=== PATIENT | female | born 1935 | race Two or more races ===

== ENCOUNTER 2018-07-23 13:24 | Emergency (ER) | payer MEDICAID ==
[~2018-07-23] VITALS: Ht 149.9 cm; Wt 49.9 kg
[~2018-07-23 13:24] MED LIST: GABA100C9 PO; SIMV80TA73 PO
[2018-07-23 13:36] VITALS: BP 141/80
== END 2018-07-23 14:57 | disposition home or self-care (01) ==
LOC: ER 13:24
DX: S00.03XA Contusion of scalp, initial encounter (principal); E78.5 Hyperlipidemia, unspecified; Z79.899 Other long term (current) drug therapy; Z90.49 Acquired absence of other specified parts of digestive tract; W01.198A Fall on same level from slipping, tripping and stumbling with subsequent striking against other object, initial encounter; Y93.89 Activity, other specified; Y99.8 Other external cause status; Y92.89 Other specified places as the place of occurrence of the external cause
CPT/HCPCS: 70450

== ENCOUNTER 2021-04-03 11:15 | Emergency (ER) | payer MEDICAID ==
[~2021-04-03] VITALS: Ht 149.9 cm; Wt 54.4 kg
[2021-04-03 13:39] LABS: Basophils # (auto) 0 10 ^3/uL (0-0.2); Basophils % (auto) 0.7 % (0.0-2.0); Eosinophils # (auto) 0.3 10 ^3/uL (0-0.8); Eosinophils % (auto) 4.7 % (0.0-7.0); Hematocrit 38.3 % (36.0-46.0); Lymphocytes % (auto) 31.5 % (10.0-50.0); Mean Corpuscular Hgb Conc. 33.9 g/dL (32.0-36.0); Mean Corpuscular Volume 88.7 fL (80.0-100.0); Monocytes # (auto) 0.5 10 ^3/uL (0-1.3); Monocytes % (auto) 7.3 % (0.0-12.0); Neutrophils # (auto) 3.5 10 ^3/uL (1.6-8.6); Neutrophils % (auto) 55.8 % (37.0-80.0); Red Blood Cells 4.32 10^6/uL (4.0-5.20); White Blood Cell 6.2 10^3/uL (4.4-10.8)
[2021-04-03 13:56] LABS: Albumin 3.9 g/dL (3.4-5.0); Calcium 9.6 mg/dL (8.5-10.1); Potassium 4.5 mmol/L (3.5-5.1)
[2021-04-03 14:00] LABS: BUN/Creatinine Ratio 16.7; Bilirubin, Total 0.7 mg/dL (0.2-1.0)
[2021-04-03 16:20] VITALS: BP 149/84
== END 2021-04-03 16:28 | disposition home or self-care (01) ==
LOC: ER 11:15
DX: R51.9 Headache, unspecified (principal); R42 Dizziness and giddiness; I12.9 Hypertensive chronic kidney disease with stage 1 through stage 4 chronic kidney disease, or unspecified chronic kidney disease; N18.30 Chronic kidney disease, stage 3 unspecified; E78.5 Hyperlipidemia, unspecified; M25.512 Pain in left shoulder; M25.511 Pain in right shoulder; M54.6 Pain in thoracic spine; Z90.49 Acquired absence of other specified parts of digestive tract; Z79.899 Other long term (current) drug therapy
CPT/HCPCS: 36415; 70450; 80053; 85025; 93005

== ENCOUNTER 2021-12-06 20:49 | Inpatient (IN) | payer MEDICAID ==
[~2021-12-06] VITALS: Ht 152.4 cm; Wt 56.0 kg
[2021-12-06 23:36] LABS: Basophils # (auto) 0.1 10 ^3/uL (0-0.2); Basophils % (auto) 0.7 % (0.0-2.0); Eosinophils # (auto) 0.2 10 ^3/uL (0-0.8); Eosinophils % (auto) 3.2 % (0.0-7.0); Hematocrit 36.3 % (36.0-46.0); Hemoglobin 12.2 g/dL (12.2-16.2); Lymphocytes # (auto) 2.1 10 ^3/uL (0.4-5.4); Lymphocytes % (auto) 27.8 % (10.0-50.0); Mean Corpuscular Hemoglobin 29.5 pg (28.0-32.0); Mean Corpuscular Hgb Conc. 33.6 g/dL (32.0-36.0); Mean Corpuscular Volume 87.8 fL (80.0-100.0); Monocytes # (auto) 0.6 10 ^3/uL (0-1.3); Monocytes % (auto) 7.9 % (0.0-12.0); Neutrophils # (auto) 4.6 10 ^3/uL (1.6-8.6); Neutrophils % (auto) 60.4 % (37.0-80.0); Red Blood Cells 4.13 10^6/uL (4.0-5.20); Red Cell Distribution Width 13.8 % (11.8-14.3); White Blood Cell 7.6 10^3/uL (4.4-10.8)
[2021-12-06 23:55] LABS: Calcium 9.1 mg/dL (8.5-10.1); Magnesium 1.9 mg/dL (1.6-2.6); Potassium 4.4 mmol/L (3.5-5.1)
[2021-12-07 00:04] LABS: BUN/Creatinine Ratio 27.5; Bilirubin, Total 0.6 mg/dL (0.2-1.0); Total Protein 8.2 g/dL (6.4-8.2)
[2021-12-07] MEDS ORDERED: SODIUM CHLORIDE 0.9% 1,000 ML IV ONE (00:15)
[2021-12-07] MEDS ORDERED: ACETAMINOPHEN 325 MG TAB PO ONE (06:45)
[2021-12-07 10:39] LABS: Urine Bacteria NONE SEEN /hpf (None Seen); Urine Blood 1+ /uL (Negative); Urine Specific Gravity 1.005 (1.001-1.035); Urine WBC 1 /hpf (0 - 5)
[2021-12-07] MEDS ORDERED: DOCUSATE SOD 100 MG CAP PO PRN (10:45)
[2021-12-07] MEDS ORDERED: ONDANSETRON HCL 4 MG/2 ML VIAL IV PRN (10:45)
[2021-12-07] MEDS ORDERED: ACETAMINOPHEN 325 MG TAB PO PRN (10:45)
[2021-12-07] MEDS: SODIUM CHLORIDE 0.9% 1,000 ML IV SCH (11:22)
[2021-12-07] MEDS: GABAPENTIN 100 MG CAP PO SCH ×2 (14:00→23:12)
[2021-12-07] MEDS: SODIUM CHLOR 0.9% PF (SALINE LOCK) 10ML VIAL/SYR IV SCH ×2 (14:04→23:10)
[2021-12-07] MEDS ORDERED: LISI20TA28 PO (19:20)
[2021-12-07] MEDS ORDERED: CHOL20007 PO (19:20)
[2021-12-07] MEDS ORDERED: ALEN70TA2 PO (19:20)
[2021-12-07] MEDS: HYDROcodone-ACET 5/325MG TAB PO PRN (20:19)
[2021-12-07 22:00] VITALS: BP 152/61
[2021-12-07 23:00] VITALS: BP 114/50
[2021-12-08] MEDS: SODIUM CHLORIDE 0.9% 1,000 ML IV SCH (03:45)
[2021-12-08 05:00] VITALS: BP 133/55
[2021-12-08] MEDS: SODIUM CHLOR 0.9% PF (SALINE LOCK) 10ML VIAL/SYR IV SCH ×3 (05:40→21:16)
[2021-12-08] MEDS: GABAPENTIN 100 MG CAP PO SCH (05:42)
[2021-12-08 09:00] VITALS: BP 150/74
[2021-12-08] MEDS ORDERED: SIMVASTATIN 80 MG PO SCH (10:00)
[2021-12-08 13:00] VITALS: BP 130/69
[2021-12-08] MEDS ORDERED: hydrALAZINE HCL 20 MG/ML VL IV PRN (14:00)
[2021-12-08] MEDS ORDERED: LISINOPRIL 10 MG TAB PO ONE (14:00)
[2021-12-08] MEDS ORDERED: THROAT LOZENGES(CEPASTAT) MT PRN (14:30)
[2021-12-08] MEDS ORDERED: ENOXAPARIN SOD 30 MG/0.3 ML SYRINGE SC ONE (14:45)
[2021-12-08 16:47] VITALS: BP 111/63
[2021-12-08 22:00] VITALS: BP 140/51
[2021-12-09] MEDS: SODIUM CHLOR 0.9% PF (SALINE LOCK) 10ML VIAL/SYR IV SCH ×2 (05:39→14:12)
[2021-12-09 05:44] LABS: Basophils # (auto) 0 10 ^3/uL (0-0.2); Basophils % (auto) 0.9 % (0.0-2.0); Eosinophils # (auto) 0.7 10 ^3/uL (0-0.8); Eosinophils % (auto) 13.8 % (0.0-7.0); Hematocrit 33.6 % (36.0-46.0); Hemoglobin 11.3 g/dL (12.2-16.2); Lymphocytes # (auto) 1.5 10 ^3/uL (0.4-5.4); Lymphocytes % (auto) 28.2 % (10.0-50.0); Mean Corpuscular Hgb Conc. 33.8 g/dL (32.0-36.0); Mean Corpuscular Volume 88.8 fL (80.0-100.0); Monocytes # (auto) 0.5 10 ^3/uL (0-1.3); Monocytes % (auto) 9.7 % (0.0-12.0); Neutrophils # (auto) 2.5 10 ^3/uL (1.6-8.6); Neutrophils % (auto) 47.4 % (37.0-80.0); Red Blood Cells 3.78 10^6/uL (4.0-5.20); Red Cell Distribution Width 13.9 % (11.8-14.3); White Blood Cell 5.3 10^3/uL (4.4-10.8)
[2021-12-09 06:07] LABS: Potassium 4.1 mmol/L (3.5-5.1)
[2021-12-09 06:10] LABS: BUN/Creatinine Ratio 17.9; Calcium 8.8 mg/dL (8.5-10.1)
[2021-12-09 06:50] VITALS: BP 121/67
[2021-12-09 08:05] VITALS: BP 121/65
[2021-12-09] MEDS ORDERED: LISINOPRIL 20 MG TAB PO SCH (10:00)
[2021-12-09] MEDS ORDERED: ENOXAPARIN SOD 30 MG/0.3 ML SYRINGE SC SCH (10:00)
[2021-12-09] MEDS: HYDROcodone-ACET 5/325MG TAB PO PRN (10:09)
[2021-12-09 13:00] VITALS: BP 132/67
[2021-12-09 15:37] VITALS: BP 132/67
[2021-12-09 16:38] VITALS: BP 123/59
== END 2021-12-09 18:51 | disposition home health service (06) | DRG 384 ==
LOC: ER 20:49 → OVERFLOW 12-07 10:50 → WEST WING 12-07 22:05
PROVIDERS: ADMIT Internal Medicine; ATTEND Internal Medicine
DX: S00.03XA Contusion of scalp, initial encounter (principal); E87.1 Hypo-osmolality and hyponatremia; R42 Dizziness and giddiness; E78.00 Pure hypercholesterolemia, unspecified; E86.0 Dehydration; I10 Essential (primary) hypertension; M81.0 Age-related osteoporosis without current pathological fracture; R26.81 Unsteadiness on feet; Z20.822 Contact with and (suspected) exposure to COVID-19; W01.0XXA Fall on same level from slipping, tripping and stumbling without subsequent striking against object, initial encounter; Y93.89 Activity, other specified; Y99.8 Other external cause status; Y92.009 Unspecified place in unspecified non-institutional (private) residence as the place of occurrence of the external cause; Z90.49 Acquired absence of other specified parts of digestive tract
CPT/HCPCS: 36415; 70450; 70486; 70551; 71045; 72125; 72170; 80048; 80053; 80061; 81001; 82306; 83735; 83880; 84443; 84484; 85025; 93005; 93886; 96360; 97110; 97116; 97163; 97530; G0378

== ENCOUNTER 2024-02-24 13:50 | Emergency (ER) | payer MEDICAID ==
[~2024-02-24 13:50] MED LIST changes: +ALEN70TA21 PO; +CHOL20007 PO; -GABA100C9 PO; +LISI20TA56 PO; +SIMV80TA17 PO; -SIMV80TA73 PO
[2024-02-24 15:11] VITALS: BP 129/62; PULSE 12; RESP 12; TEMP 98.8; O2SAT 95
[2024-02-24 15:41] LABS: Basophils # (auto) 0.1 10 ^3/uL (0-0.2); Eosinophils # (auto) 0.5 10 ^3/uL (0-0.8); Eosinophils % (auto) 9.1 % (0.0-7.0); Hematocrit 34.6 % (36.0-46.0); Hemoglobin 12.1 g/dL (12.2-16.2); Lymphocytes # (auto) 2.4 10 ^3/uL (0.4-5.4); Mean Corpuscular Hemoglobin 31.2 pg (28.0-32.0); Mean Corpuscular Hgb Conc. 34.9 g/dL (32.0-36.0); Mean Corpuscular Volume 89.6 fL (80.0-100.0); Monocytes # (auto) 0.5 10 ^3/uL (0-1.3); Monocytes % (auto) 8.2 % (0.0-12.0); Neutrophils # (auto) 2.5 10 ^3/uL (1.6-8.6); Neutrophils % (auto) 41.7 % (37.0-80.0); Nucleated Red Blood Cells % 0.1 %; Platelet Count (auto) 249 10^3/uL (140-450); Red Blood Cells 3.87 10^6/uL (4.0-5.20); Red Cell Distribution Width 14.4 % (11.8-14.3); White Blood Cell 5.9 10^3/uL (4.4-10.8)
[2024-02-24 15:44] LABS: Urine Bacteria None Seen /hpf (None Seen); Urine WBC None Seen /hpf (0 - 5)
[2024-02-24 15:52] LABS: Chloride 105 mmol/L (98-107); Potassium 4.3 mmol/L (3.5-5.1); Sodium 133 mmol/L (136-145)
[2024-02-24 15:53] LABS: Anion Gap 2 (5-15); Calcium 10.2 mg/dL (8.7-10.4); Carbon Dioxide 26 mmol/L (20-31)
[2024-02-24 15:57] LABS: Uric Acid 4.2 mg/dL (3.1-7.8)
[2024-02-24 15:58] LABS: BUN/Creatinine Ratio 15.8 (10.0-20.0); Blood Urea Nitrogen 16 mg/dL (9-23); Glucose 93 mg/dL (74-106)
[2024-02-24 16:15] LABS: Urine Blood TRACE /uL (Negative); Urine Clarity Clear (Clear); Urine Color Colorless (Yellow); Urine Protein, UAD Negative (Negative); Urine Specific Gravity 1.006 (1.001-1.035); Urine Urobilinogen Normal (Negative); Urine pH 6.5 (5.0-9.0)
[2024-02-24 16:23] LABS: Erythrocyte Sedimentation Rate 16 mm/hr (0-20)
[2024-02-24] MEDS: methylPREDNISolone SOD SUCC 125 MG/2 ML VL IM ONE (17:27)
[2024-02-24] MEDS: ACETAMINOPHEN 500 MG TAB PO ONE (17:28)
[2024-02-24] MEDS ORDERED: METH4PAK PO (17:44)
[2024-02-24] MEDS ORDERED: ACET-1080 PO (17:44)
== END 2024-02-24 17:46 | disposition home or self-care (01) ==
LOC: ER 13:50
DX: M17.12 Unilateral primary osteoarthritis, left knee (principal); R60.9 Edema, unspecified
CPT/HCPCS: 36415; 73562; 73610; 80048; 81001; 84550; 85025; 85652; 96372; 99284; J2919

== ENCOUNTER 2024-10-19 13:35 | Emergency (ER) | payer MEDICAID ==
[~2024-10-19] VITALS: Ht 154.9 cm; Wt 49.4 kg
[~2024-10-19 13:35] MED LIST changes: +ACET-1080 PO; +METH4PAK PO
[2024-10-19] MEDS: MECLIZINE HCL 25 MG TAB PO ONE (14:29)
[2024-10-19] MEDS: ONDANSETRON ODT 4 MG TAB PO ONE (14:30)
[2024-10-19] MEDS: PANTOPRAZOLE 40 MG TAB PO ONE (14:30)
--- NOTE | 2024-10-19 14:47 | ED.PDOC ---
HPI (NEURO) HPI Comments HPI: 89y F who presents to the ED for chief complaint of dizziness. - pt states she has been having dizziness for the past 2 weeks - pt describes it as the room is spinning - pt has been having associated loss of appetite but otherwise denies any other symptoms - pt states she went to urgent care for URI symptoms yesterday and states she was prescribed Augmentin - pt states after taking the antibiotic, she started to have epigastric abdominal pain, with associated nausea - pt in the ED, otherwise denies any other symptoms - pt has noted stable vitals in the ED Past Medical history: HTN, HLD, arthritis Past Surgical history: cholecystectomy, appendectomy Medications: unknown Allergies: nkda Social History: denies ETOH, denies tobacco use, denies drug use DIAZ: HPI: Poor Historian. Epigastric pain after taking Augmentin for some type of lung infection evaluated at urgent care yesterday. Dizziness for at least two weeks worse than her baseline. Patient is cramps dizziness as everything is spinning around her. Past Medical History: Past Surgical History: REVIEW OF SYSTEMS: CONSTITUTIONAL: Denies acute: fever, diaphoresis, chills, HEAD: Denies acute: headache, photophobia Eyes: Denies acute: Double vision, vision loss, eye pain, eye discharge. EARS: Denies acute: tinnitus, hearing loss, ear discharge, ear pain, THROAT: Denies acute: sore throat, swelling, difficulty swallowing , pain with swallowing, change in voice. NECK: Denies acute: neck pain, neck swelling, stiff neck. HEART: Denies acute : chest pain, palpitations, LUNGS: Denies acute: SOB, wheezing, cough, hemoptysis ABDOMEN: Denies acute: Vomiting, diarrhea, melena , hematemesis, hematochezia SKIN: Denies acute: rash, redness, lesions, itchiness. EXTREMITIES: Denies acute: calf pain, numbness, tingling, weakness, denies pain in extremity. Denies acute: Low back pain. Neuro: Denies acute: focal neurological deficit, motor or sensory focal neurological deficit, tremors, seizure like activity, confusion, , change in mental status, loss of bowel or bladder function, cauda equina like symptoms. : Denies acute: dysuria, hematuria, flank pain, increase in urinary frequency. PSYCH: Denies acute: hallucination, suicidal ideation, homicidal ideation. FEMALE: Denies acute: abnormal vaginal bleeding, foul odor, unusual discharge. PHYSICAL EXAM: General: ----yvwi-pu-ryozmqsg----acute distress, awake and alert. Head: normocephalic, atraumatic. Neck: supple, trachea is midline, no swelling. Throat: Normal phonation. Eyes:, no erythema, no purulent discharge, no proptosis, no icterus. Heart: regular rate, regular rhythm, no significant murmur appreciated. Lungs: no apparent respiratory distress, Able to speak in full sentences. No wheezing, no rhonchi, no crackles. No stridors Clear to auscultation bilaterally. Abdomen: Epigastric tender to palpation, non distended, soft, no guarding, no rebound, + bowel sounds. Neuro: Awake, Alert, oriented to name, self, situation, follows commands GCS=15. Speech is normal. Skin: no petechia, no purpura, no cyanosis, non-pale, not jaundice. Lower extremities: --no - Pitting edema no deformity, no focal swelling, no calf TTP. Makes eye contact. moves all four extremities. Face: no apparent facial droop. Ambulating in the ED independently. But not quite stable ED COURSE: Chief Complaint: Dizziness Time Seen by MD: 14:47 Primary Care Provider: DIONTE Roberts Notes: Medications, Allergies Information Source: Patient Mode of Arrival: Ambulatory Past Medical History PAST MEDICAL HISTORY: Arthritis, High Lipids, HTN Surgical History: Appendectomy, Cholecystectomy CAMERA TECHNICIAN History: No Pertinent CAMERA TECHNICIAN History Family History Family History: Unobtainable Social History Smoker: Non-Smoker Alcohol: Denies ETOH Use Drugs: Denies Drug Use Lives In: Home Was a procedure done? Was a procedure done?: No Differential Diagnosis (SZ) General Weakness: Anemia, CVA, Dehydration, Dysrhythmia, Electrolyte imbalance, Encephalopathy, Guillain-[place], Hypoglycemia, Hypotension, Hypovolemia, Labyrinthitis, Meniere's disease, Myasthenia gravis, Myocardial infarction, Pulmonary embolus, Renal failure, Repiratory failure, TIA, VBI, Vertigo: central, Vertigo: peripheral, Vestibular neuronitis X-Ray, Labs, Meds, VS Vital Signs Date Time Temp Pulse Resp B/P (MAP) Pulse Ox O2 Delivery O2 Flow Rate FiO2 10/19/24 18:07 76 14 97 Room Air* 0 21 10/19/24 15:55 97.4 77 16 123/55 (77) 94 97.4 10/19/24 14:22 10/19/24 14:14 78 10/19/24 14:00 98.7 80 13 141/74 (96) 97 98.7 Lab Test 10/19/24 15:29 10/19/24 14:26 10/19/24 14:16 10/19/24 14:06 Range/Units Troponin I High Sensitivity 9 8 </=34 ng/L White Blood Count 9.8 4.4-10.8 10^3/uL Red Blood Count 4.02 4.0-5.20 10^6/uL Hemoglobin 12.1 L 12.2-16.2 g/dL Hematocrit 34.9 L 36.0-46.0 % Mean Corpuscular Volume 86.8 80.0-100.0 fL Mean Corpuscular Hemoglobin 30.2 28.0-32.0 pg Mean Corpuscular Hemoglobin Concent 34.8 32.0-36.0 g/dL Red Cell Distribution Width 14.6 H 11.8-14.3 % Platelet Count 294 140-450 10^3/uL Mean Platelet Volume 6.1 L 6.9-10.8 fL Neutrophils (%) (Auto) 37.0-80.0 % Lymphocytes (%) (Auto) 10.0-50.0 % Monocytes (%) (Auto) 0.0-12.0 % Basophils (%) (Auto) 0.0-2.0 % Neutrophils # (Auto) 1.6-8.6 10 ^3/uL Lymphocytes # (Auto) 0.4-5.4 10 ^3/uL Monocytes # (Auto) 0-1.3 10 ^3/uL Differential Total Cells Counted 100.0 100 Neutrophils % (Manual) 22 L 37.0-80.0 Band Neutrophils % (Manual) 0 Lymphocytes % (Manual) 24 10.0-50.0 Monocytes % (Manual) 10 0-12 Eosinophils % (Manual) 44 H 0-7 Basophils % (Manual) 0 0.0-2.0 Metamyelocytes % (manual) 0 Myelocytes % (Manual) 0 Promyelocytes % (Manual) 0 Blast Cells % (Manual) 0 Reactive Lymphocytes 0 Platelet Estimate Adequate Sodium Level 134 L 136-145 mmol/L Potassium Level 3.7 3.5-5.1 mmol/L Chloride Level 100 98-107 mmol/L Carbon Dioxide Level 26 20-31 mmol/L Anion Gap 8 5-15 Blood Urea Nitrogen 11 9-23 mg/dL Creatinine 0.86 0.550-1.02 mg/dL Glomerular Filtration Rate Calc 65 >90 mL/min BUN/Creatinine Ratio 12.8 10.0-20.0 Serum Glucose 85 74-106 mg/dL Lactic Acid Level 1.0 0.4-2.0 mmol/L Calcium Level 9.4 8.7-10.4 mg/dL Magnesium Level 1.8 1.6-2.6 mg/dL Total Bilirubin 0.5 0.2-1.0 mg/dL Aspartate Amino Transferase (AST) 13 13-40 U/L Alanine Aminotransferase (ALT) 11 7-40 U/L Alkaline Phosphatase 109 46-116 U/L B-Type Natriuretic Peptide 70.73 0-100 pg/mL Total Protein 7.7 5.7-8.2 g/dL Albumin 4.3 3.2-4.8 g/dL Lipase 33 12-53 U/L POC Glucose 84 70-106 mg/dl Urine Color Colorless Yellow Urine Clarity Clear Clear Urine pH 6.5 5.0-9.0 Urine Specific [place] 1.003 1.001-1.035 Urine Protein Negative Negative Urine Ketones Negative Negative Urine Blood Trace H Negative /uL Urine Nitrite Negative Negative Urine Bilirubin Negative Negative Urine Urobilinogen Normal Negative mg/dL Urine Leukocyte Esterase Negative Negative /uL Urine RBC 1 0 - 4 /hpf Urine Microscopic WBC < 1 0-5 /HPF Urine Squamous Epithelial Cells None seen <5 /hpf Urine Bacteria None seen None Seen /hpf Urine Glucose Normal Normal mg/dL [address] [address] Ph: [phone] DIAGNOSTIC IMAGING Diagnostic Imaging Report : [id number] Signed PATIENT: FRANKI THAO MACCT: [id number] UNIT: [id number] : 1935 LOC: ER ROOM / BED: / AGE / SEX: 89 / F ADM STATUS: REG ER SERVICE 01 ORDERING PHYSICIAN: HARSHA REEVES DO PROCEDURE(s): HWOCT - HEAD WITHOUT CONTRAST REASON: dizzy ORDER NUMBER(s): [id number], ACCESSION NUMBER(s): [id number] EXAM: CT HEAD WITHOUT CONTRAST HISTORY: dizzy COMPARISON: HEAD WITHOUT CONTRAST on DOS: 12/06/21 TECHNIQUE: Axial images of the head were obtained and reformatted in coronal and sagittal planes. All CT scans at this medical facility are performed using dose modulation techniques as appropriate to a performed exam including the following: Automated exposure control was utilized; adjustment of the MA and/or KV according to patie nt size; and use of iterative reconstruction technique. CT Dose: CTDI volume is 53 mGy. Dose-length product is 849 mGy*cm FINDINGS: There is no evidence of acute intracranial hemorrhage, mass, mass effect midline shift. There is no hydrocephalus or extra-axial fluid collection. Hernadez-white matter differentiation is maintained. There is mucosal thickening in the visualized paranasal sinuses. The calvarium is intact. IMPRESSION: 1. No acute intracranial process. HS:Y ATED BY: TOREY SHANE MD DICTATED DATE/TIME: 10/19/241456 SIGNED BY: TOREY SHANE MD SIGNED DATE/TIME: 10/19/241456 CC: [place] [id number] Ph: [phone] DIAGNOSTIC IMAGING Diagnostic Imaging Report : [id number] Signed PATIENT: FRANKI THAO MACCT: [id number] UNIT: [id number] : 1935 LOC: ER ROOM / BED: / AGE / SEX: 89 / F ADM STATUS: REG ER SERVICE 01 ORDERING PHYSICIAN: HARSHA REEVES DO PROCEDURE(s): CXRP - CHEST PORTABLE REASON: dizzy ORDER NUMBER(s): [id number], ACCESSION NUMBER(s): [id number] INDICATION: dizzy TECHNIQUE: Frontal view of the chest. COMPARISON: CHEST PORTABLE on DOS: 12/06/21, CXRP on DOS: 12/06/21 FINDINGS: Finding. The heart and mediastinal contours are grossly unremarkable. There is no evidence of pleural disease. The lungs demonstrate diffuse interstitial pulmonary edema. The bony structures of the chest are intact without fracture. IMPRESSION: 1. Interstitial pulmonary edema. ATED BY: DAMON SMILEY MD DICTATED DATE/TIME: 10/19/24 150 SIGNED BY: DAMON SMILEY MD SIGNED DATE/TIME: 10/19/24 150 CC: [place] [id number] Ph: [phone] DIAGNOSTIC IMAGING Diagnostic Imaging Report : [id number] Signed PATIENT: FRANKI THAO MACCT: [id number] UNIT: [id number] : 1935 LOC: ER ROOM / BED: / AGE / SEX: 89 / F ADM STATUS: REG ER SERVICE 1402 ORDERING PHYSICIAN: HARSHA REEVES DO PROCEDURE(s): ABPL - CT AB PEL WO CON-NO ORAL OR IV REASON: n/v abd pain ORDER NUMBER(s): [id number], ACCESSION NUMBER(s): [id number] EXAM: CT Abdomen and Pelvis Without Intravenous Contrast CLINICAL INDICATION: n/v abd pain TECHNIQUE: Axial computed tomography images of the abdomen and pelvis without intravenous contrast. This CT exam was performed using one or more of the following dose reduction techniques: automated exposure control, adjustment of the mA and/or kV according to patient size, and/or use of iterative reconstruction technique. CONTRAST: RADIATION DOSE: CTDIvol = 5.07 mGy, DLP = 244.52 mGy-cm COMPARISON: [facility] on DOS: 12/08/21 FINDINGS: LUNG BASES: Unremarkable. No mass. No consolidation. ABDOMEN: LIVER: Unremarkable. GALLBLADDER AND BILE DUCTS: Unremarkable. No calcified stones. No ductal dilation. PANCREAS: Unremarkable. No ductal dilation. SPLEEN: Unremarkable. No splenomegaly. ADRENALS: Unremarkable. No mass. KIDNEYS AND URETERS: Mild right hydroureteronephrosis. Calculi in the right hemipelvis are thought to be phlebolith. STOMACH AND BOWEL: Fecal retention in the colon consistent with constipation. Colonic diverticulosis without acute diverticulitis. No obstruction. PELVIS: APPENDIX: No findings to suggest acute appendicitis. BLADDER: Unremarkable. No stones. REPRODUCTIVE: Unremarkable as visualized. ABDOMEN and PELVIS: INTRAPERITONEAL SPACE: Unremarkable. No free air. No significant fluid collection. BONES/JOINTS: No acute fracture. No dislocation. SOFT TISSUES: Inguinal hernias, bilaterally. VASCULATURE: Unremarkable. No abdominal aortic aneurysm. LYMPH NODES: Unremarkable. No enlarged lymph nodes. OTHER FINDINGS: . . IMPRESSION: 1. Mild right hydroureteronephrosis. Calculi in the right hemipelvis are thought to be phlebolith. 2. Fecal retention in the colon consistent with constipation. 3. Inguinal hernias, bilaterally. 4. Colonic diverticulosis without acute diverticulitis. ATED BY: KAREEM VALDES MD DICTATED DATE/TIME: 10/19/241504 SIGNED BY: KAREEM VALDES MD SIGNED DATE/TIME: 10/19/241504 CC: Time of 1ST Reevaluation: 17:50 Reevaluation 1ST: Resolved Patient Education/Counseling: Diagnosis, Treatment Family Education/Counseling: Diagnosis, Treatment Comments Patient presented with the above HPI.---dizziness---workup was initiated. patient was found with the above mentioned diagnosis. the following medications were ordered: please refer to order lists of meds and tests obtained by myself Dr. Reeves. Patient ED course and VS have been stabilized. Patient has been reassessed in the ED and remained in a stable condition. Pertinent incidental findings were discussed with the patient and/or family. Patient/family voices understanding and is agreeable with plan. Patient has been observed in the ED adequate length of time to insure improvement/stability. Escalation of care considered: Consideration of escalation to observation or admission Symptoms have resolved after meclizine. Patient was DISCHARGED home in a stable condition. All the reports of any imaging studies that were ordered by myself were reviewed by myself. Departure 1 Departure Time of Disposition: 15:16 Impression: Primary Impression: Vertigo Additional Impressions: Epigastric pain Constipation Hydroureteronephrosis Disposition: HOME / SELF CARE / HOMELESS Condition: Stable Additional Instructions: Additional instructions: You MUST follow-up with your primary care/family doctor in 1 to 2 days. If you are unable to see your primary care/family doctor, please return to our emergency room for re-assessment and re-evaluation in 1 to 2 days. Return to the emergency room here in our facility or to the nearest ER [facility] if your symptoms change or worsen. CONSULTATIONS: you MUST Follow-up for consultation as soon as possible with: -neurology and ENT doctor in 1-2 day history of please call for appointment. You MUST call the consultants office yourself to make an appointment. You may need to arrange that through your insurance and/or your primary/family doctor. If you are unable to see the securities consultant in 1 to 2 days, you must return to our emergency room (or any other ER of your choice) for re-assessment and re- evaluation. Adequate fluid hydration. Below is a copy of your radiological report for follow up: [place] [id number] Ph: [phone] DIAGNOSTIC IMAGING Diagnostic Imaging Report : [id number] Signed PATIENT: FRANKI THAO ACCT: [id number] UNIT: [id number] : 1935 LOC: ER ROOM / BED: / AGE / SEX: 89 / F ADM STATUS: REG ER SERVICE 1402 ORDERING PHYSICIAN: HARSHA REEVES DO PROCEDURE(s): ABPL - CT AB PEL WO CON-NO ORAL OR IV REASON: n/v abd pain ORDER NUMBER(s): [id number], ACCESSION NUMBER(s): [id number] EXAM: CT Abdomen and Pelvis Without Intravenous Contrast CLINICAL INDICATION: n/v abd pain TECHNIQUE: Axial computed tomography images of the abdomen and pelvis without intravenous contrast. This CT exam was performed using one or more of the following dose reduction techniques: automated exposure control, adjustment of the mA and/or kV according to patient size, and/or use of iterative reconstruction technique. CONTRAST: RADIATION DOSE: CTDIvol = 5.07 mGy, DLP = 244.52 mGy-cm COMPARISON: [facility] on DOS: 12/08/21 FINDINGS: LUNG BASES: Unremarkable. No mass. No consolidation. ABDOMEN: LIVER: Unremarkable. GALLBLADDER AND BILE DUCTS: Unremarkable. No calcified stones. No ductal dilation. PANCREAS: Unremarkable. No ductal dilation. SPLEEN: Unremarkable. No splenomegaly. ADRENALS: Unremarkable. No mass. KIDNEYS AND URETERS: Mild right hydroureteronephrosis. Calculi in the right hemipelvis are thought to be phlebolith. STOMACH AND BOWEL: Fecal retention in the colon consistent with constipation. Colonic diverticulosis without acute diverticulitis. No obstruction. PELVIS: APPENDIX: No findings to suggest acute appendicitis. BLADDER: Unremarkable. No stones. REPRODUCTIVE: Unremarkable as visualized. ABDOMEN and PELVIS: INTRAPERITONEAL SPACE: Unremarkable. No free air. No significant fluid collection. BONES/JOINTS: No acute fracture. No dislocation. SOFT TISSUES: Inguinal hernias, bilaterally. VASCULATURE: Unremarkable. No abdominal aortic aneurysm. LYMPH NODES: Unremarkable. No enlarged lymph nodes. OTHER FINDINGS: . . IMPRESSION: 1. Mild right hydroureteronephrosis. Calculi in the right hemipelvis are thought to be phlebolith. 2. Fecal retention in the colon consistent with constipation. 3. Inguinal hernias, bilaterally. 4. Colonic diverticulosis without acute diverticulitis. ATED BY: KAREEM VALDES MD DICTATED DATE/TIME: 10/19/24 1505 SIGNED BY: KAREEM VALDES MD SIGNED DATE/TIME: 10/19/24 1505 CC: e-Prescriptions Meclizine HCl (Meclizine 25) 25 Mg Tab 25 MG PO [id number] PRN for 3 Days, #6 TAB Prov: HARSHA REEVES DO 10/19/24 Discharged With: Self, Relative Critical Care Note Critical Care Time?: No I personally scribed for HARSHA REEVES DO ([email or web address]) on 10/19/24 at 14:47. Electronically submitted by David Lester ([email or web address]). I personally scribed for HARSHA REEVES DO ([email or web address]) on 10/19/24 at 19:19. Electronically submitted by David Lester ([email or web address]). HARSHA REEVES DO October 19, 2024 14:47
[2024-10-19 14:49] LABS: Hematocrit 34.9 % (36.0-46.0); Hemoglobin 12.1 g/dL (12.2-16.2); Mean Corpuscular Hemoglobin 30.2 pg (28.0-32.0); Mean Corpuscular Hgb Conc. 34.8 g/dL (32.0-36.0); Mean Corpuscular Volume 86.8 fL (80.0-100.0); Platelet Count (auto) 294 10^3/uL (140-450); Red Blood Cells 4.02 10^6/uL (4.0-5.20); Red Cell Distribution Width 14.6 % (11.8-14.3); White Blood Cell 9.8 10^3/uL (4.4-10.8)
[2024-10-19 14:54] LABS: Band Neutrophils % (manual) 0; Basophils % (manual) 0 (0.0-2.0); Blast Cells 0; Metamyelocytes % 0; Myelocytes % 0; Promyelocytes % 0; Reactive Lymphocytes 0
--- NOTE | 2024-10-19 14:59 | DVH ---
EXAM: CT HEAD WITHOUT CONTRAST HISTORY: dizzy COMPARISON: HEAD WITHOUT CONTRAST on DOS: 12/06/21 TECHNIQUE: Axial images of the head were obtained and reformatted in coronal and sagittal planes. All CT scans at this medical facility are performed using dose modulation techniques as appropriate t o a performed exam including the following: Automated exposure control was utilized; adjustment of th e MA and/or KV according to patient size; and use of iterative reconstruction technique. CT Dose: CTDI volume is 53 mGy. Dose-length product is 849 mGy*cm FINDINGS: There is no evidence of acute intracranial hemorrhage, mass, mass effect midline shift. There is no h ydrocephalus or extra-axial fluid collection. Hernadez-white matter differentiation is maintained. There is mucosal thickening in the visualized paranasal sinuses. The calvarium is intact. IMPRESSION: 1. No acute intracranial process. HS:Y
[2024-10-19 15:03] LABS: Alanine Aminotransferase 11 U/L (7-40); Albumin 4.3 g/dL (3.2-4.8); Alkaline Phosphatase 109 U/L (46-116); Anion Gap 8 (5-15); Aspartate Aminotransferase 13 U/L (13-40); BUN/Creatinine Ratio 12.8 (10.0-20.0); Bilirubin, Total 0.5 mg/dL (0.2-1.0); Blood Urea Nitrogen 11 mg/dL (9-23); Calcium 9.4 mg/dL (8.7-10.4); Carbon Dioxide 26 mmol/L (20-31); Chloride 100 mmol/L (98-107); Glucose 85 mg/dL (74-106); Lipase 33 U/L (12-53); Magnesium 1.8 mg/dL (1.6-2.6); Potassium 3.7 mmol/L (3.5-5.1); Total Protein 7.7 g/dL (5.7-8.2)
[2024-10-19 15:04] LABS: Sodium 134 mmol/L (136-145)
--- NOTE | 2024-10-19 15:07 | DVH ---
INDICATION: dizzy TECHNIQUE: Frontal view of the chest. COMPARISON: CHEST PORTABLE on DOS: 12/06/21, CXRP on DOS: 12/06/21 FINDINGS: Finding. The heart and mediastinal contours are grossly unremarkable. There is no evidence of pleura l disease. The lungs demonstrate diffuse interstitial pulmonary edema. The bony structures of the chest are intact without fracture. IMPRESSION: 1. Interstitial pulmonary edema.
--- NOTE | 2024-10-19 15:08 | DVH ---
EXAM: CT Abdomen and Pelvis Without Intravenous Contrast CLINICAL INDICATION: n/v abd pain TECHNIQUE: Axial computed tomography images of the abdomen and pelvis without intravenous contrast. This CT exam was performed using one or more of the following dose reduction techniques: automated exposure control, adjustment of the mA and/or kV according to patient size, and/or use of iterative r econstruction technique. CONTRAST: RADIATION DOSE: CTDIvol = 5.07 mGy, DLP = 244.52 mGy-cm COMPARISON: [facility] on DOS: 12/08/21 FINDINGS: LUNG BASES: Unremarkable. No mass. No consolidation. ABDOMEN: LIVER: Unremarkable. GALLBLADDER AND BILE DUCTS: Unremarkable. No calcified stones. No ductal dilation. PANCREAS: Unremarkable. No ductal dilation. SPLEEN: Unremarkable. No splenomegaly. ADRENALS: Unremarkable. No mass. KIDNEYS AND URETERS: Mild right hydroureteronephrosis. Calculi in the right hemipelvis are thought to be phlebolith. STOMACH AND BOWEL: Fecal retention in the colon consistent with constipation. Colonic diverticulos is without acute diverticulitis. No obstruction. PELVIS: APPENDIX: No findings to suggest acute appendicitis. BLADDER: Unremarkable. No stones. REPRODUCTIVE: Unremarkable as visualized. ABDOMEN and PELVIS: INTRAPERITONEAL SPACE: Unremarkable. No free air. No significant fluid collection. BONES/JOINTS: No acute fracture. No dislocation. SOFT TISSUES: Inguinal hernias, bilaterally. VASCULATURE: Unremarkable. No abdominal aortic aneurysm. LYMPH NODES: Unremarkable. No enlarged lymph nodes. OTHER FINDINGS: . . IMPRESSION: 1. Mild right hydroureteronephrosis. Calculi in the right hemipelvis are thought to be phlebolith. 2. Fecal retention in the colon consistent with constipation. 3. Inguinal hernias, bilaterally. 4. Colonic diverticulosis without acute diverticulitis.
[2024-10-19 15:14] LABS: Urine Bacteria None Seen /hpf (None Seen)
[2024-10-19 15:22] LABS: Urine Blood TRACE /uL (Negative); Urine Clarity Clear (Clear); Urine Color Colorless (Yellow); Urine Protein, UAD Negative (Negative); Urine Specific Gravity 1.003 (1.001-1.035); Urine Squamous Epithelial Cell None Seen /hpf (<5); Urine Urobilinogen Normal (Negative); Urine WBC < 1 /HPF (0-5); Urine pH 6.5 (5.0-9.0)
[2024-10-19 15:22] LABS: Eosinophils % (manual) 44 (0-7); Lymphocytes % (manual) 24 (10.0-50.0); Monocytes % (manual) 10 (0-12); Platelet Estimate Adequate
[2024-10-19 15:55] VITALS: BP 123/55; TEMP 97.4
[2024-10-19] MEDS: ACETAMINOPHEN 325 MG TAB PO ONE (16:13)
[2024-10-19] MEDS ORDERED: MECL1TAB42 PO (17:49)
[2024-10-19 18:07] VITALS: PULSE 76; RESP 14; O2SAT 97
--- NOTE | 2024-10-20 06:27 | ECG ---
[facility] Test Date: 2024-10-19 Test Time: 14:14:18 Pat Name: FRANKI LANDA Department: ER Room: Gender: F Global Logistics Analyst: MILA : 1935 Requested By: HARSHA REEVES Order Number: [id number] Reading MD: Lenin Ewing Measurements Intervals [place]mond Rate: 78 P: 47 OR: 156 QRS: 99 QRSD: 142 T: 11 QT: 414 QTc: 472 Interpretive Statements Sinus rhythm Probable left atrial enlargement Right bundle branch block Electronically Signed On 10-23-2024 11:51:22 PDT by Lenin Ewing Please click the below link to view image of tracing.
== END 2024-10-19 18:13 | disposition home or self-care (01) ==
LOC: ER 13:35
DX: R10.13 Epigastric pain (principal); R42 Dizziness and giddiness; K59.00 Constipation, unspecified; N13.30 Unspecified hydronephrosis; I10 Essential (primary) hypertension; M19.90 Unspecified osteoarthritis, unspecified site; D64.9 Anemia, unspecified; E78.5 Hyperlipidemia, unspecified; R06.02 Shortness of breath; Z90.49 Acquired absence of other specified parts of digestive tract
CPT/HCPCS: 36415; 70450; 71045; 74176; 80053; 81001; 82947; 83605; 83690; 83735; 83880; 84484; 85007; 85027; 93005; 99285; J8597; Q0162; 82962